=== PATIENT | female | born 1955 | race Caucasian/White ===

== ENCOUNTER 2021-09-16 10:00 | Inpatient (IN) | payer MEDICAID, OTHER ==
[~2021-09-16] VITALS: Ht 170.2 cm; Wt 73.6 kg
[2021-09-16] MEDS ORDERED: cefTRIAXone 1GM/50ML D5W 50 ML IV ONE (12:30)
[2021-09-16] MEDS ORDERED: CLINDAMYCIN 900MG IV 50 ML IV ONE (12:30)
[2021-09-16] MEDS ORDERED: ONDANSETRON ODT 4 MG TAB PO ONE (12:30)
[2021-09-16] MEDS ORDERED: HYDROcodone-ACET 5/325MG TAB PO ONE (12:30)
[2021-09-16 12:35] LABS: Basophils # (auto) 0 10 ^3/uL (0-0.2); Basophils % (auto) 0.5 % (0.0-2.0); Eosinophils # (auto) 0.1 10 ^3/uL (0-0.8); Eosinophils % (auto) 1.6 % (0.0-7.0); Hematocrit 41.4 % (36.0-46.0); Hemoglobin 14.3 g/dL (12.2-16.2); Lymphocytes % (auto) 15.4 % (10.0-50.0); Mean Corpuscular Hemoglobin 32.2 pg (28.0-32.0); Mean Corpuscular Hgb Conc. 34.5 g/dL (32.0-36.0); Mean Corpuscular Volume 93.4 fL (80.0-100.0); Monocytes # (auto) 0.6 10 ^3/uL (0-1.3); Monocytes % (auto) 10.1 % (0.0-12.0); Neutrophils # (auto) 4.7 10 ^3/uL (1.6-8.6); Neutrophils % (auto) 72.4 % (37.0-80.0); Nucleated Red Blood Cells % 0.1 %; Red Blood Cells 4.43 10^6/uL (4.0-5.20); White Blood Cell 6.4 10^3/uL (4.4-10.8)
[2021-09-16 12:49] LABS: Calcium 9.1 mg/dL (8.5-10.1); Potassium 4.7 mmol/L (3.5-5.1)
[2021-09-16 12:55] LABS: Albumin 3.9 g/dL (3.4-5.0); BUN/Creatinine Ratio 10.6; Bilirubin, Total 0.8 mg/dL (0.2-1.0)
[2021-09-16] MEDS ORDERED: IOHEXOL 300 MG/ML 100ML BOTTLE IJ ONE (12:59)
[2021-09-16] MEDS ORDERED: SODIUM CHLORIDE 0.9% 1,000 ML IV ONE (13:45)
[2021-09-16] MEDS ORDERED: NITROGLYCERIN 0.4 MG SL TAB SL PRN (14:15)
[2021-09-16] MEDS ORDERED: MORPHINE SULFATE INJ 2 MG/ml SYRG IV PRN (14:15)
[2021-09-16] MEDS ORDERED: diphenhdrAMINE HCL 50 MG/1 ML VL IV ONE (15:00)
[2021-09-16] MEDS ORDERED: methylPREDNISolone SOD SUCC 125 MG/2 ML VL IV ONE (15:00)
[2021-09-16 22:00] VITALS: BP 142/57
[2021-09-16 23:00] VITALS: BP 142/57
[2021-09-17] MEDS ORDERED: HYDROcodone-ACET 5/325MG TAB PO PRN (00:30)
[2021-09-17] MEDS: diphenhdrAMINE HCL 25 MG CAP PO PRN ×3 (01:35→15:45)
[2021-09-17] MEDS ORDERED: ONDANSETRON HCL 4 MG/2 ML VIAL IV PRN (04:00)
[2021-09-17] MEDS ORDERED: DOCUSATE SOD 100 MG CAP PO PRN (04:00)
[2021-09-17] MEDS ORDERED: FAMOTIDINE (10MG/ML) 2ML VL IV ONE (04:00)
[2021-09-17] MEDS ORDERED: hydrALAZINE HCL 20 MG/ML VL IV PRN (04:00)
[2021-09-17] MEDS ORDERED: ACETAMINOPHEN 325 MG TAB PO PRN (04:00)
[2021-09-17] MEDS ORDERED: MORPHINE SULFATE INJ 2 MG/ml SYRG IV PRN (04:00)
[2021-09-17] MEDS ORDERED: LORazepam 0.5 MG TAB PO PRN (04:00)
[2021-09-17 05:00] VITALS: BP 146/71
[2021-09-17 05:47] LABS: Basophils # (auto) 0 10 ^3/uL (0-0.2); Basophils % (auto) 0.4 % (0.0-2.0); Eosinophils # (auto) 0 10 ^3/uL (0-0.8); Eosinophils % (auto) 0.1 % (0.0-7.0); Hematocrit 37.9 % (36.0-46.0); Lymphocytes # (auto) 0.4 10 ^3/uL (0.4-5.4); Lymphocytes % (auto) 6.8 % (10.0-50.0); Mean Corpuscular Hemoglobin 31.9 pg (28.0-32.0); Mean Corpuscular Hgb Conc. 34.2 g/dL (32.0-36.0); Mean Corpuscular Volume 93.4 fL (80.0-100.0); Monocytes # (auto) 0.3 10 ^3/uL (0-1.3); Monocytes % (auto) 4.7 % (0.0-12.0); Neutrophils # (auto) 5.1 10 ^3/uL (1.6-8.6); Red Blood Cells 4.06 10^6/uL (4.0-5.20); White Blood Cell 5.8 10^3/uL (4.4-10.8)
[2021-09-17 05:59] LABS: INR 1.01 (0.9-1.15); Partial Thromboplastin Time 35.7 sec (23.6-33.0)
[2021-09-17 06:04] LABS: Potassium 4.3 mmol/L (3.5-5.1)
[2021-09-17 06:20] LABS: Albumin 3.2 g/dL (3.4-5.0); BUN/Creatinine Ratio 17.9; Bilirubin, Total 0.5 mg/dL (0.2-1.0); CRP High Sensitivity 1.53 mg/dL (< 0.3); Calcium 8.4 mg/dL (8.5-10.1); Magnesium 2.1 mg/dL (1.6-2.6); Phosphorus 2.9 mg/dL (2.5-4.90); Total Protein 6.7 g/dL (6.4-8.2); Uric Acid 3.6 mg/dL (2.6-6.0)
[2021-09-17] MEDS: AMPICILLIN & SULBACTAM SODIUM 3 GM in SODIUM CHL 0.9% 100 ML IV SCH ×3 (06:53→18:01)
[2021-09-17] MEDS ORDERED: LEVOTHYROXINE SODIUM 25 MCG TAB PO ONE (08:00)
[2021-09-17 08:54] VITALS: BP 146/71
[2021-09-17 09:00] VITALS: BP 138/58
[2021-09-17] MEDS: ENOXAPARIN SOD 40 MG/0.4 ML SYRINGE SC SCH (09:12)
[2021-09-17] MEDS: NIFEdipine ER 30 MG TAB PO SCH (09:14)
[2021-09-17] MEDS: ASPirin 81 mg TAB PO SCH (09:15)
[2021-09-17] MEDS: HYDROcodone-ACET 5/325MG TAB PO PRN ×2 (09:25→15:45)
[2021-09-17 13:00] VITALS: BP 143/69
[2021-09-17 15:48] LABS: Urine Bacteria NONE SEEN /hpf (None Seen); Urine Blood Negative /uL (Negative); Urine Specific Gravity 1.019 (1.001-1.035); Urine WBC 8 /hpf (0 - 5)
[2021-09-17 17:00] VITALS: BP 111/47
[2021-09-17] MEDS: NICOTINE 21MG/24 HR TOPICAL PATCH TD SCH (18:02)
[2021-09-17] MEDS: IPRATROPIUM BROM 0.5 MG/2.5ML INH SOL NEB SCH ×2 (19:03→22:00)
[2021-09-17] MEDS: BUDESONIDE (INHALATION) 0.5 MG/2 ML NEB NEB SCH ×2 (19:04→22:00)
[2021-09-17 21:52] LABS: Alcohol, Urine < 3.0 mg/dL (0-10); Amphetamine Screen, Urine NEGATIVE (NEGATIVE); Barbiturate Scree,Urine NEGATIVE (NEGATIVE); Benzodiazephine Screen, Urine NEGATIVE (NEGATIVE); Cannabinoid Screen, Urine NEGATIVE (NEGATIVE); Cocaine Screen, Urine NEGATIVE (NEGATIVE); Opiate Scree,Urine NEGATIVE (NEGATIVE); Phencyclidine Screen, Urine NEGATIVE (NEGATIVE)
[2021-09-17 22:00] VITALS: BP 123/70
[2021-09-18] MEDS: AMPICILLIN & SULBACTAM SODIUM 3 GM in SODIUM CHL 0.9% 100 ML IV SCH ×4 (00:33→17:39)
[2021-09-18] MEDS: HYDROcodone-ACET 5/325MG TAB PO PRN ×2 (00:58→21:32)
[2021-09-18] MEDS: IPRATROPIUM BROM 0.5 MG/2.5ML INH SOL NEB SCH ×6 (01:56→22:32)
[2021-09-18 05:00] VITALS: BP 144/80
[2021-09-18] MEDS: LEVOTHYROXINE SODIUM 25 MCG TAB PO SCH (06:15)
[2021-09-18 08:00] VITALS: BP 150/88
[2021-09-18 09:00] VITALS: BP 150/88
[2021-09-18] MEDS: FAMOTIDINE (10MG/ML) 2ML VL IV SCH (09:34)
[2021-09-18] MEDS: NIFEdipine ER 30 MG TAB PO SCH (09:35)
[2021-09-18] MEDS: ENOXAPARIN SOD 40 MG/0.4 ML SYRINGE SC SCH (09:37)
[2021-09-18] MEDS: ASPirin 81 mg TAB PO SCH (09:37)
[2021-09-18] MEDS: NICOTINE 21MG/24 HR TOPICAL PATCH TD SCH (09:38)
[2021-09-18] MEDS: BUDESONIDE (INHALATION) 0.5 MG/2 ML NEB NEB SCH ×2 (10:29→17:54)
[2021-09-18 14:00] VITALS: BP 143/75
[2021-09-18 17:00] VITALS: BP 155/78
[2021-09-18 23:55] VITALS: BP 131/66
[2021-09-19] MEDS: IPRATROPIUM BROM 0.5 MG/2.5ML INH SOL NEB SCH ×4 (02:00→14:12)
[2021-09-19 05:18] VITALS: BP 144/77
[2021-09-19] MEDS: AMPICILLIN & SULBACTAM SODIUM 3 GM in SODIUM CHL 0.9% 100 ML IV SCH ×4 (06:00→12:00)
[2021-09-19] MEDS: BUDESONIDE (INHALATION) 0.5 MG/2 ML NEB NEB SCH (06:02)
[2021-09-19] MEDS: LEVOTHYROXINE SODIUM 25 MCG TAB PO SCH (06:21)
[2021-09-19 06:54] LABS: BUN/Creatinine Ratio 10.9; Calcium 8.8 mg/dL (8.5-10.1); Potassium 3.4 mmol/L (3.5-5.1)
[2021-09-19] MEDS: HYDROcodone-ACET 5/325MG TAB PO PRN (07:18)
[2021-09-19] MEDS ORDERED: POTASSIUM CHL 20 Meq TABLET PO ONE (08:30)
[2021-09-19] MEDS: NICOTINE 21MG/24 HR TOPICAL PATCH TD SCH (08:45)
[2021-09-19] MEDS: ENOXAPARIN SOD 40 MG/0.4 ML SYRINGE SC SCH (08:45)
[2021-09-19] MEDS: ASPirin 81 mg TAB PO SCH (08:45)
[2021-09-19] MEDS: FAMOTIDINE (10MG/ML) 2ML VL IV SCH (08:45)
[2021-09-19] MEDS: diphenhdrAMINE HCL 25 MG CAP PO PRN (08:49)
[2021-09-19 09:00] VITALS: BP 144/74
[2021-09-19] MEDS ORDERED: LISINOPRIL 20 MG TAB PO SCH (10:00)
[2021-09-19 13:00] VITALS: BP 114/67
[2021-09-19] MEDS ORDERED: LISI20TA28 PO (13:26)
[2021-09-19] MEDS ORDERED: LEVO500T31 PO (13:26)
[2021-09-19] MEDS ORDERED: NIC21P TOP (13:26)
[2021-09-19 13:31] VITALS: BP 114/67
== END 2021-09-19 15:18 | disposition home or self-care (01) | DRG 383 ==
LOC: ER 10:00 → TELE 14:10 → TELE-EAST 20:52 → EAST 09-18 15:29
PROVIDERS: ADMIT Hospitalist; ATTEND Internal Medicine
DX: L03.211 Cellulitis of face (principal); E03.9 Hypothyroidism, unspecified; I10 Essential (primary) hypertension; J44.9 Chronic obstructive pulmonary disease, unspecified; F17.210 Nicotine dependence, cigarettes, uncomplicated; Z20.822 Contact with and (suspected) exposure to COVID-19; E87.6 Hypokalemia; Z88.8 Allergy status to other drugs, medicaments and biological substances; Z71.6 Tobacco abuse counseling; Z80.1 Family history of malignant neoplasm of trachea, bronchus and lung
CPT/HCPCS: 36415; 70487; 71046; 80048; 80053; 80061; 80307; 81001; 83036; 83735; 84100; 84156; 84443; 84484; 84550; 85025; 85610; 85652; 85730; 86141; 87040; 87086; 94640; 96361; 96365; 96368; 96375; G0378; J0696; J3490; Q0162

== ENCOUNTER 2021-09-26 11:10 | Emergency (ER) | payer MEDICAID ==
[~2021-09-26] VITALS: Ht 170.2 cm; Wt 72.1 kg
[~2021-09-26 11:10] MED LIST: LEVO500T31 PO; LISI20TA28 PO; NIC21P TOP
[2021-09-26 11:12] VITALS: BP 173/73
[2021-09-26] MEDS ORDERED: cefTRIAXone SOD 1,000 MG VL IM ONE (12:15)
[2021-09-26] MEDS ORDERED: CEPH-509 PO (12:36)
== END 2021-09-26 12:41 | disposition home or self-care (01) ==
LOC: ER 11:10
DX: L01.00 Impetigo, unspecified (principal); I10 Essential (primary) hypertension; J44.9 Chronic obstructive pulmonary disease, unspecified; F17.210 Nicotine dependence, cigarettes, uncomplicated; Z79.2 Long term (current) use of antibiotics; Z79.899 Other long term (current) drug therapy; Z88.1 Allergy status to other antibiotic agents
CPT/HCPCS: 96372; 99283; J0696

== ENCOUNTER 2021-09-28 10:11 | Emergency (ER) | payer MEDICAID ==
[~2021-09-28] VITALS: Ht 170.2 cm; Wt 72.1 kg
[~2021-09-28 10:11] MED LIST changes: +CEPH-509 PO
[2021-09-28 12:15] VITALS: BP 169/85
[2021-09-28] MEDS ORDERED: DICL500C76 PO (12:49)
[2021-09-28] MEDS ORDERED: ACE3T PO (12:49)
== END 2021-09-28 13:08 | disposition home or self-care (01) ==
LOC: ER 10:11
DX: L03.211 Cellulitis of face (principal); F17.210 Nicotine dependence, cigarettes, uncomplicated; J44.9 Chronic obstructive pulmonary disease, unspecified; I10 Essential (primary) hypertension; Z88.1 Allergy status to other antibiotic agents

== ENCOUNTER 2021-09-30 12:17 | Inpatient (IN) | payer MEDICAID ==
[~2021-09-30] VITALS: Ht 165.1 cm; Wt 77.6 kg
[~2021-09-30 12:17] MED LIST changes: +ACE3T PO; +DICL500C76 PO
[2021-09-30] MEDS ORDERED: PIPERACILLIN-TAZOB 3.375GM 100 ML IV ONE (13:15)
[2021-09-30 14:08] LABS: Urine Bacteria NONE SEEN /hpf (None Seen); Urine Blood Negative /uL (Negative); Urine Specific Gravity 1.004 (1.001-1.035); Urine WBC 6 /hpf (0 - 5)
[2021-09-30 14:11] LABS: Basophils # (auto) 0.1 10 ^3/uL (0-0.2); Basophils % (auto) 0.6 % (0.0-2.0); Eosinophils # (auto) 0.2 10 ^3/uL (0-0.8); Eosinophils % (auto) 1.8 % (0.0-7.0); Hematocrit 43.2 % (36.0-46.0); Hemoglobin 14.9 g/dL (12.2-16.2); Lymphocytes % (auto) 10.7 % (10.0-50.0); Mean Corpuscular Hemoglobin 31.8 pg (28.0-32.0); Mean Corpuscular Hgb Conc. 34.4 g/dL (32.0-36.0); Mean Corpuscular Volume 92.4 fL (80.0-100.0); Monocytes # (auto) 0.7 10 ^3/uL (0-1.3); Monocytes % (auto) 7.3 % (0.0-12.0); Neutrophils # (auto) 7.5 10 ^3/uL (1.6-8.6); Neutrophils % (auto) 79.6 % (37.0-80.0); Red Blood Cells 4.68 10^6/uL (4.0-5.20); Red Cell Distribution Width 13.5 % (11.8-14.3); White Blood Cell 9.4 10^3/uL (4.4-10.8)
[2021-09-30 14:27] LABS: Amphetamine Screen, Urine NEGATIVE (NEGATIVE); Barbiturate Scree,Urine NEGATIVE (NEGATIVE); Benzodiazephine Screen, Urine NEGATIVE (NEGATIVE); Cannabinoid Screen, Urine NEGATIVE (NEGATIVE); Cocaine Screen, Urine NEGATIVE (NEGATIVE); Opiate Scree,Urine NEGATIVE (NEGATIVE); Phencyclidine Screen, Urine NEGATIVE (NEGATIVE)
[2021-09-30 14:37] LABS: Albumin 4.2 g/dL (3.4-5.0); Calcium 8.9 mg/dL (8.5-10.1); Potassium 3.8 mmol/L (3.5-5.1)
[2021-09-30 14:42] LABS: BUN/Creatinine Ratio 7.9; Bilirubin, Total 0.8 mg/dL (0.2-1.0); Total Protein 8.3 g/dL (6.4-8.2)
[2021-09-30] MEDS ORDERED: MORPHINE SULFATE INJ 2 MG/ml SYRG IV PRN (16:00)
[2021-09-30] MEDS ORDERED: NITROGLYCERIN 0.4 MG SL TAB SL PRN (16:00)
[2021-09-30] MEDS ORDERED: VANCOMYCIN PER PHARMACY 0 MG IV SCH (16:45)
[2021-09-30] MEDS: SODIUM CHLORIDE 0.9% 1,000 ML IV SCH (16:58)
[2021-09-30] MEDS: VANCOMYCIN 1GM/250ML 250 ML IV SCH (18:31)
[2021-09-30] MEDS ORDERED: ONDANSETRON HCL 4 MG/2 ML VIAL IV PRN (20:45)
[2021-09-30] MEDS ORDERED: IPRATROPIUM BROM 0.5 MG/2.5ML INH SOL NEB PRN (20:45)
[2021-09-30] MEDS ORDERED: ACETAMINOPHEN 325 MG TAB PO PRN (20:45)
[2021-09-30] MEDS ORDERED: LORazepam 2MG/ML-1ML VIAL IV PRN (20:45)
[2021-09-30 21:02] LABS: Phosphorus 3.8 mg/dL (2.5-4.90)
[2021-09-30] MEDS: PIPERACILLIN-TAZO 4.5GM 100 ML IV SCH (22:29)
[2021-09-30] MEDS: ATORVASTATIN 20 MG TAB PO SCH (22:29)
[2021-09-30 22:30] VITALS: BP 149/80
[2021-09-30] MEDS: HYDROcodone-ACET 5/325MG TAB PO PRN (22:35)
[2021-09-30] MEDS: FLUTICASONE PROP NASAL SPR 0.05 % (50MCG) 16GM EACHNOSTRI SCH (22:41)
[2021-10-01] MEDS: MORPHINE SULFATE INJ 2 MG/ml SYRG IV PRN (00:24)
[2021-10-01] MEDS ORDERED: TEMAZEPAM 15 MG CAP PO ONE ×2 (00:45→22:45)
[2021-10-01 01:13] VITALS: BP 142/86
[2021-10-01 05:00] VITALS: BP_SYST 114; BP_SYST 156; BP_DIAS 73; BP_DIAS 79
[2021-10-01] MEDS: PIPERACILLIN-TAZO 4.5GM 100 ML IV SCH (05:40)
[2021-10-01] MEDS: VANCOMYCIN 1GM/250ML 250 ML IV SCH ×2 (05:44→17:33)
[2021-10-01 07:18] LABS: Basophils # (auto) 0.1 10 ^3/uL (0-0.2); Basophils % (auto) 1.1 % (0.0-2.0); Eosinophils # (auto) 0.3 10 ^3/uL (0-0.8); Eosinophils % (auto) 4.1 % (0.0-7.0); Hematocrit 38.8 % (36.0-46.0); Hemoglobin 13.5 g/dL (12.2-16.2); Lymphocytes # (auto) 1.2 10 ^3/uL (0.4-5.4); Lymphocytes % (auto) 20.6 % (10.0-50.0); Mean Corpuscular Hemoglobin 32.8 pg (28.0-32.0); Mean Corpuscular Hgb Conc. 34.9 g/dL (32.0-36.0); Monocytes # (auto) 0.5 10 ^3/uL (0-1.3); Monocytes % (auto) 8.4 % (0.0-12.0); Neutrophils % (auto) 65.8 % (37.0-80.0); Nucleated Red Blood Cells % 0.1 %; Red Blood Cells 4.13 10^6/uL (4.0-5.20); Red Cell Distribution Width 13.8 % (11.8-14.3); White Blood Cell 6.1 10^3/uL (4.4-10.8)
[2021-10-01 07:21] LABS: INR 1.1 (0.9-1.15); Partial Thromboplastin Time 34.9 sec (23.6-33.0)
[2021-10-01 07:32] LABS: Albumin 3.3 g/dL (3.4-5.0); BUN/Creatinine Ratio 8.2; Calcium 8.2 mg/dL (8.5-10.1); Magnesium 2.1 mg/dL (1.6-2.6); Potassium 3.6 mmol/L (3.5-5.1)
[2021-10-01 07:34] LABS: Bilirubin, Total 1.1 mg/dL (0.2-1.0); Phosphorus 2.8 mg/dL (2.5-4.90); Total Protein 6.4 g/dL (6.4-8.2)
[2021-10-01 09:00] VITALS: BP 137/67
[2021-10-01] MEDS: SODIUM CHLORIDE 0.9% 1,000 ML IV SCH (09:43)
[2021-10-01] MEDS: ENOXAPARIN SOD 40 MG/0.4 ML SYRINGE SC SCH (09:44)
[2021-10-01] MEDS: ASPirin 81 mg TAB PO SCH (09:44)
[2021-10-01] MEDS: FAMOTIDINE (10MG/ML) 2ML VL IV SCH (09:44)
[2021-10-01] MEDS: FLUTICASONE PROP NASAL SPR 0.05 % (50MCG) 16GM EACHNOSTRI SCH ×2 (09:44→21:43)
[2021-10-01] MEDS: NICOTINE 21MG/24 HR TOPICAL PATCH TD SCH (09:46)
[2021-10-01] MEDS: BENAZEPRIL HCL 10 MG TAB PO SCH (09:46)
[2021-10-01] MEDS ORDERED: DAPTOmycin 0 MG in SODIUM CHL 0.9% 50 ML IV SCH (10:00)
[2021-10-01] MEDS: diphenhdrAMINE HCL 25 MG CAP PO PRN (12:17)
[2021-10-01 13:00] VITALS: BP 144/66
[2021-10-01 17:00] VITALS: BP 121/68
[2021-10-01] MEDS ORDERED: diphenhdrAMINE HCL 50 MG/1 ML VL IV ONE (17:15)
[2021-10-01] MEDS: ATORVASTATIN 20 MG TAB PO SCH (21:43)
[2021-10-01 22:00] VITALS: BP 136/73
[2021-10-02] MEDS: SODIUM CHLORIDE 0.9% 1,000 ML IV SCH ×2 (04:16→08:49)
[2021-10-02 06:01] VITALS: BP 150/73
[2021-10-02] MEDS: VANCOMYCIN 1GM/250ML 250 ML IV SCH ×2 (06:35→17:17)
[2021-10-02] MEDS: FLUTICASONE PROP NASAL SPR 0.05 % (50MCG) 16GM EACHNOSTRI SCH ×2 (08:48→21:48)
[2021-10-02] MEDS: ASPirin 81 mg TAB PO SCH (08:48)
[2021-10-02] MEDS: FAMOTIDINE (10MG/ML) 2ML VL IV SCH (08:48)
[2021-10-02] MEDS: BENAZEPRIL HCL 10 MG TAB PO SCH (08:48)
[2021-10-02] MEDS: NICOTINE 21MG/24 HR TOPICAL PATCH TD SCH (08:49)
[2021-10-02] MEDS: ENOXAPARIN SOD 40 MG/0.4 ML SYRINGE SC SCH (08:49)
[2021-10-02] MEDS: HYDROcodone-ACET 5/325MG TAB PO PRN ×2 (08:50→16:39)
[2021-10-02 09:00] VITALS: BP 152/82
[2021-10-02] MEDS ORDERED: guaiFENesin-DM 100/10mg/5ml SYR PO PRN (11:15)
[2021-10-02 13:00] VITALS: BP 148/78
[2021-10-02] MEDS: guaiFENesin-DM 100/10mg/5ml SYR PO SCH ×2 (13:20→21:48)
[2021-10-02 17:00] VITALS: BP 155/77
[2021-10-02] MEDS: hydrALAZINE HCL 20 MG/ML VL IV PRN (20:54)
[2021-10-02] MEDS: ATORVASTATIN 20 MG TAB PO SCH (21:48)
[2021-10-02] MEDS: diphenhdrAMINE HCL 25 MG CAP PO PRN (21:49)
[2021-10-02 22:00] VITALS: BP 160/83
[2021-10-03] MEDS ORDERED: TEMAZEPAM 15 MG CAP PO ONE
[2021-10-03] MEDS: SODIUM CHLORIDE 0.9% 1,000 ML IV SCH ×2 (03:00→23:50)
[2021-10-03] MEDS: hydrALAZINE HCL 20 MG/ML VL IV PRN ×2 (04:56→21:34)
[2021-10-03 05:00] VITALS: BP 161/79
[2021-10-03] MEDS: guaiFENesin-DM 100/10mg/5ml SYR PO SCH ×3 (05:46→21:34)
[2021-10-03] MEDS: VANCOMYCIN 1GM/250ML 250 ML IV SCH ×2 (05:47→18:00)
[2021-10-03 09:00] VITALS: BP 138/78
[2021-10-03] MEDS: ASPirin 81 mg TAB PO SCH (09:37)
[2021-10-03] MEDS: FLUTICASONE PROP NASAL SPR 0.05 % (50MCG) 16GM EACHNOSTRI SCH ×2 (09:37→21:33)
[2021-10-03] MEDS: BENAZEPRIL HCL 10 MG TAB PO SCH (09:38)
[2021-10-03] MEDS: ENOXAPARIN SOD 40 MG/0.4 ML SYRINGE SC SCH (09:38)
[2021-10-03] MEDS: DOCUSATE SOD 100 MG CAP PO PRN (09:40)
[2021-10-03] MEDS: NICOTINE 21MG/24 HR TOPICAL PATCH TD SCH (09:40)
[2021-10-03] MEDS: HYDROcodone-ACET 5/325MG TAB PO PRN (09:41)
[2021-10-03 13:00] VITALS: BP 144/71
[2021-10-03 17:00] VITALS: BP 148/74
[2021-10-03 18:33] VITALS: BP 148/74
[2021-10-03] MEDS: ATORVASTATIN 20 MG TAB PO SCH (21:33)
[2021-10-03 22:00] VITALS: BP 158/80
[2021-10-03] MEDS: ZOLPIDEM TARTRATE 5 MG TAB PO PRN (22:13)
[2021-10-04 05:00] VITALS: BP 134/65
[2021-10-04] MEDS: guaiFENesin-DM 100/10mg/5ml SYR PO SCH ×3 (05:45→22:07)
[2021-10-04] MEDS: VANCOMYCIN 1GM/250ML 250 ML IV SCH ×2 (05:45→17:53)
[2021-10-04 08:00] VITALS: BP 142/64
[2021-10-04] MEDS: ENOXAPARIN SOD 40 MG/0.4 ML SYRINGE SC SCH (10:00)
[2021-10-04] MEDS: BENAZEPRIL HCL 10 MG TAB PO SCH (10:00)
[2021-10-04] MEDS: FLUTICASONE PROP NASAL SPR 0.05 % (50MCG) 16GM EACHNOSTRI SCH ×2 (10:00→22:07)
[2021-10-04] MEDS: ASPirin 81 mg TAB PO SCH (10:00)
[2021-10-04] MEDS: NICOTINE 21MG/24 HR TOPICAL PATCH TD SCH (10:00)
[2021-10-04] MEDS: DOCUSATE SOD 100 MG CAP PO PRN (10:07)
[2021-10-04] MEDS: diphenhdrAMINE HCL 25 MG CAP PO PRN (10:07)
[2021-10-04] MEDS: HYDROcodone-ACET 5/325MG TAB PO PRN ×2 (10:07→22:08)
[2021-10-04 12:00] VITALS: BP 126/67
[2021-10-04 16:00] VITALS: BP 127/67
[2021-10-04 20:00] VITALS: BP 152/72
[2021-10-04 22:00] VITALS: BP 153/72
[2021-10-04] MEDS: ZOLPIDEM TARTRATE 5 MG TAB PO PRN (22:06)
[2021-10-04] MEDS: ATORVASTATIN 20 MG TAB PO SCH (22:07)
[2021-10-05] MEDS: ALBUTEROL SULF 2.5 MG/0.5ML(0.5%) NEB SOLN NEB PRN ×2 (00:31→20:51)
[2021-10-05 05:00] VITALS: BP 148/68
[2021-10-05] MEDS: VANCOMYCIN 1GM/250ML 250 ML IV SCH (05:38)
[2021-10-05] MEDS: guaiFENesin-DM 100/10mg/5ml SYR PO SCH ×3 (05:38→21:45)
[2021-10-05 06:11] LABS: Basophils # (auto) 0 10 ^3/uL (0-0.2); Basophils % (auto) 0.7 % (0.0-2.0); Eosinophils # (auto) 0.1 10 ^3/uL (0-0.8); Eosinophils % (auto) 2.7 % (0.0-7.0); Hematocrit 34.3 % (36.0-46.0); Hemoglobin 11.9 g/dL (12.2-16.2); Lymphocytes % (auto) 18.9 % (10.0-50.0); Mean Corpuscular Hemoglobin 32.7 pg (28.0-32.0); Mean Corpuscular Hgb Conc. 34.7 g/dL (32.0-36.0); Mean Corpuscular Volume 94.3 fL (80.0-100.0); Monocytes # (auto) 0.5 10 ^3/uL (0-1.3); Monocytes % (auto) 9.8 % (0.0-12.0); Neutrophils # (auto) 3.6 10 ^3/uL (1.6-8.6); Neutrophils % (auto) 67.9 % (37.0-80.0); Red Blood Cells 3.63 10^6/uL (4.0-5.20); White Blood Cell 5.3 10^3/uL (4.4-10.8)
[2021-10-05 06:15] LABS: Potassium 3.5 mmol/L (3.5-5.1)
[2021-10-05 06:21] LABS: Albumin 3.2 g/dL (3.4-5.0); BUN/Creatinine Ratio 10.4; Calcium 8.1 mg/dL (8.5-10.1); Phosphorus 3.7 mg/dL (2.5-4.90)
[2021-10-05 09:00] VITALS: BP 155/66
[2021-10-05] MEDS: hydrALAZINE HCL 20 MG/ML VL IV PRN (09:10)
[2021-10-05] MEDS: FLUTICASONE PROP NASAL SPR 0.05 % (50MCG) 16GM EACHNOSTRI SCH ×2 (09:32→21:55)
[2021-10-05] MEDS: ENOXAPARIN SOD 40 MG/0.4 ML SYRINGE SC SCH (09:32)
[2021-10-05] MEDS: BENAZEPRIL HCL 10 MG TAB PO SCH (09:32)
[2021-10-05] MEDS: ASPirin 81 mg TAB PO SCH (09:32)
[2021-10-05] MEDS: NICOTINE 21MG/24 HR TOPICAL PATCH TD SCH (09:32)
[2021-10-05] MEDS: diphenhdrAMINE HCL 25 MG CAP PO PRN ×2 (09:34→16:39)
[2021-10-05] MEDS: SODIUM CHLORIDE 0.9% 1,000 ML IV SCH ×2 (12:55→13:55)
[2021-10-05 13:00] VITALS: BP 118/60
[2021-10-05 17:00] VITALS: BP 140/63
[2021-10-05] MEDS: ATORVASTATIN 20 MG TAB PO SCH (21:45)
[2021-10-05] MEDS: ZOLPIDEM TARTRATE 5 MG TAB PO PRN (21:46)
[2021-10-05] MEDS: MORPHINE SULFATE INJ 2 MG/ml SYRG IV PRN (21:46)
[2021-10-05 22:00] VITALS: BP 129/60
[2021-10-05 23:22] VITALS: BP 129/60
[2021-10-06 05:00] VITALS: BP 138/63
[2021-10-06] MEDS ORDERED: VANCOMYCIN 1GM/250ML 250 ML IV SCH (06:00)
[2021-10-06] MEDS: guaiFENesin-DM 100/10mg/5ml SYR PO SCH (06:05)
[2021-10-06] MEDS ORDERED: DOXY-286 PO (08:38)
[2021-10-06] MEDS ORDERED: DIPH25CA66 PO (08:38)
[2021-10-06] MEDS: diphenhdrAMINE HCL 25 MG CAP PO PRN (08:55)
[2021-10-06 09:00] VITALS: BP 126/58
[2021-10-06] MEDS: FLUTICASONE PROP NASAL SPR 0.05 % (50MCG) 16GM EACHNOSTRI SCH (09:06)
[2021-10-06] MEDS: BENAZEPRIL HCL 10 MG TAB PO SCH (09:07)
[2021-10-06] MEDS: ENOXAPARIN SOD 40 MG/0.4 ML SYRINGE SC SCH (09:07)
[2021-10-06] MEDS: ASPirin 81 mg TAB PO SCH (09:07)
[2021-10-06] MEDS: NICOTINE 21MG/24 HR TOPICAL PATCH TD SCH (09:08)
[2021-10-06 09:59] VITALS: BP 126/58
== END 2021-10-06 10:30 | disposition home or self-care (01) | DRG 383 ==
LOC: ER 12:17 → OVERFLOW 15:59 → EAST 21:26
PROVIDERS: ADMIT Hospitalist; ATTEND Family Medicine
DX: L03.211 Cellulitis of face (principal); J44.1 Chronic obstructive pulmonary disease with (acute) exacerbation; L01.00 Impetigo, unspecified; A46 Erysipelas; F10.10 Alcohol abuse, uncomplicated; F17.210 Nicotine dependence, cigarettes, uncomplicated; I10 Essential (primary) hypertension; J32.9 Chronic sinusitis, unspecified; L71.9 Rosacea, unspecified; M19.90 Unspecified osteoarthritis, unspecified site; N39.0 Urinary tract infection, site not specified; Z20.822 Contact with and (suspected) exposure to COVID-19; E03.9 Hypothyroidism, unspecified; E78.00 Pure hypercholesterolemia, unspecified; E78.5 Hyperlipidemia, unspecified; Z80.1 Family history of malignant neoplasm of trachea, bronchus and lung; Z82.0 Family history of epilepsy and other diseases of the nervous system; Z88.8 Allergy status to other drugs, medicaments and biological substances; Z71.6 Tobacco abuse counseling; Z71.41 Alcohol abuse counseling and surveillance of alcoholic
CPT/HCPCS: 36415; 70450; 80053; 80069; 80202; 80307; 81001; 82565; 83036; 83605; 83735; 83880; 84100; 84439; 84443; 84484; 85025; 85379; 85610; 85730; 87040; 87081; 87086; 87205; 94640; 96361; 96365; 96366; 96367; G0378; J2405; J2543; J3490

== ENCOUNTER 2021-10-09 10:31 | Inpatient (IN) | payer MEDICAID ==
[~2021-10-09] VITALS: Ht 170.2 cm; Wt 75.1 kg
[~2021-10-09 10:31] MED LIST changes: +DIPH25CA66 PO; +DOXY-286 PO
[2021-10-09 11:23] LABS: Eosinophils # (auto) 0.2 10 ^3/uL (0-0.8)
[2021-10-09 11:25] LABS: Basophils # (auto) 0.2 10 ^3/uL (0-0.2); Basophils % (auto) 3.5 % (0.0-2.0); Eosinophils % (auto) 2.7 % (0.0-7.0); Hematocrit 41.7 % (36.0-46.0); Lymphocytes # (auto) 0.8 10 ^3/uL (0.4-5.4); Lymphocytes % (auto) 12.5 % (10.0-50.0); Mean Corpuscular Hemoglobin 31.5 pg (28.0-32.0); Mean Corpuscular Hgb Conc. 33.7 g/dL (32.0-36.0); Mean Corpuscular Volume 93.7 fL (80.0-100.0); Monocytes # (auto) 0.5 10 ^3/uL (0-1.3); Monocytes % (auto) 8.7 % (0.0-12.0); Neutrophils # (auto) 4.5 10 ^3/uL (1.6-8.6); Neutrophils % (auto) 72.6 % (37.0-80.0); Nucleated Red Blood Cells % 0.1 %; Red Blood Cells 4.45 10^6/uL (4.0-5.20); White Blood Cell 6.2 10^3/uL (4.4-10.8)
[2021-10-09 11:38] LABS: INR 1.04 (0.9-1.15); Partial Thromboplastin Time 36.2 sec (23.6-33.0)
[2021-10-09 11:41] LABS: Calcium 9.1 mg/dL (8.5-10.1); Potassium 3.6 mmol/L (3.5-5.1)
[2021-10-09 11:45] LABS: BUN/Creatinine Ratio 12.5; Bilirubin, Total 0.8 mg/dL (0.2-1.0); Total Protein 8.1 g/dL (6.4-8.2)
[2021-10-09] MEDS ORDERED: cefTRIAXone 1GM/50ML D5W 50 ML IV ONE (12:45)
[2021-10-09] MEDS ORDERED: SODIUM CHLORIDE 0.9% 1,000 ML IV ONE (12:45)
[2021-10-09] MEDS ORDERED: hydrALAZINE HCL 20 MG/ML VL IV ONE (16:30)
[2021-10-09] MEDS ORDERED: MORPHINE SULFATE INJ 2 MG/ml SYRG IV ONE (16:45)
[2021-10-09] MEDS ORDERED: hydrALAZINE HCL 20 MG/ML VL IV PRN (17:15)
[2021-10-09] MEDS ORDERED: cloNIDine HCL 0.1 MG TAB PO ONE (17:15)
[2021-10-09] MEDS ORDERED: diphenhdrAMINE HCL 50 MG/1 ML VL IV ONE (17:15)
[2021-10-09] MEDS ORDERED: FAMOTIDINE (10MG/ML) 2ML VL IV ONE (17:15)
[2021-10-09] MEDS: SOD CHL 0.45% 1,000 ML IV SCH (18:03)
[2021-10-09] MEDS ORDERED: KETOROLAC TROMETH 30 MG/ML 1ML VIAL IV PRN (19:45)
[2021-10-09 22:00] VITALS: BP 141/72
[2021-10-09] MEDS: diphenhdrAMINE HCL 50 MG/1 ML VL IV PRN (22:02)
[2021-10-10 05:00] VITALS: BP 142/70
[2021-10-10] MEDS: SOD CHL 0.45% 1,000 ML IV SCH ×2 (06:55→08:55)
[2021-10-10 09:00] VITALS: BP 153/83
[2021-10-10] MEDS: NICOTINE 7MG/24HR TOPICAL PATCH TD SCH (09:48)
[2021-10-10] MEDS: diphenhdrAMINE HCL 50 MG/1 ML VL IV PRN (09:49)
[2021-10-10] MEDS ORDERED: VANCOMYCIN PER PHARMACY 0 MG IV SCH (12:00)
[2021-10-10] MEDS ORDERED: VANCOMYCIN 1GM/250ML 250 ML IV ONE (12:15)
[2021-10-10 13:00] VITALS: BP 145/73
[2021-10-10] MEDS: ALPRAZolam 0.5 MG TAB PO SCH ×2 (13:54→22:33)
[2021-10-10] MEDS: diphenhdrAMINE HCL 25 MG CAP PO PRN (15:59)
[2021-10-10 17:00] VITALS: BP 120/79
[2021-10-10 22:00] VITALS: BP 141/72
[2021-10-11] MEDS: VANCOMYCIN 1GM/250ML 250 ML IV SCH ×2 (02:09→15:17)
[2021-10-11 05:00] VITALS: BP 144/85
[2021-10-11] MEDS: ALPRAZolam 0.5 MG TAB PO SCH ×3 (05:57→21:38)
[2021-10-11 08:57] LABS: Urine Bacteria FEW /hpf (None Seen); Urine Blood Negative /uL (Negative); Urine Specific Gravity 1.004 (1.001-1.035); Urine WBC 6 /hpf (0 - 5)
[2021-10-11 09:00] VITALS: BP 121/66
[2021-10-11] MEDS: NICOTINE 7MG/24HR TOPICAL PATCH TD SCH (10:00)
[2021-10-11 13:00] VITALS: BP 142/74
[2021-10-11 16:49] VITALS: BP 147/79
[2021-10-11] MEDS: diphenhdrAMINE HCL 25 MG CAP PO PRN (20:15)
[2021-10-11 22:00] VITALS: BP 128/83
[2021-10-12 05:00] VITALS: BP_SYST 130; BP_SYST 149; BP_DIAS 74; BP_DIAS 79
[2021-10-12] MEDS: ALPRAZolam 0.5 MG TAB PO SCH ×3 (05:37→21:26)
[2021-10-12] MEDS: VANCOMYCIN 1GM/250ML 250 ML IV SCH ×2 (06:00→12:29)
[2021-10-12] MEDS: diphenhdrAMINE HCL 25 MG CAP PO PRN ×2 (08:13→16:53)
[2021-10-12 09:00] VITALS: BP 136/75
[2021-10-12] MEDS: NICOTINE 7MG/24HR TOPICAL PATCH TD SCH (09:58)
[2021-10-12 13:00] VITALS: BP 144/84
[2021-10-12 17:00] VITALS: BP 138/73
[2021-10-12 22:00] VITALS: BP 155/79
[2021-10-13 05:00] VITALS: BP 137/73
[2021-10-13] MEDS: ALPRAZolam 0.5 MG TAB PO SCH ×3 (05:35→20:59)
[2021-10-13] MEDS: VANCOMYCIN 1GM/250ML 250 ML IV SCH (05:35)
[2021-10-13 08:00] VITALS: BP 119/81
[2021-10-13] MEDS: NICOTINE 7MG/24HR TOPICAL PATCH TD SCH (10:00)
[2021-10-13] MEDS: diphenhdrAMINE HCL 25 MG CAP PO PRN ×2 (10:29→20:06)
[2021-10-13 11:59] LABS: Basophils # (auto) 0.1 10 ^3/uL (0-0.2); Eosinophils # (auto) 0.3 10 ^3/uL (0-0.8); Eosinophils % (auto) 3.6 % (0.0-7.0); Hematocrit 40.7 % (36.0-46.0); Hemoglobin 13.3 g/dL (12.2-16.2); Mean Corpuscular Hemoglobin 30.6 pg (28.0-32.0); Mean Corpuscular Hgb Conc. 32.8 g/dL (32.0-36.0); Mean Corpuscular Volume 93.3 fL (80.0-100.0); Monocytes # (auto) 0.7 10 ^3/uL (0-1.3); Neutrophils % (auto) 71.4 % (37.0-80.0); Nucleated Red Blood Cells % 0.1 %; Red Blood Cells 4.36 10^6/uL (4.0-5.20); Red Cell Distribution Width 13.7 % (11.8-14.3); White Blood Cell 7.1 10^3/uL (4.4-10.8)
[2021-10-13 12:00] VITALS: BP 147/74
[2021-10-13 16:00] VITALS: BP 138/78
[2021-10-13 22:00] VITALS: BP 149/90
[2021-10-14] MEDS: VANCOMYCIN 1GM/250ML 250 ML IV SCH (00:16)
[2021-10-14 05:00] VITALS: BP 162/80
[2021-10-14] MEDS: ALPRAZolam 0.5 MG TAB PO SCH (05:37)
[2021-10-14 06:25] VITALS: BP 142/78
[2021-10-14] MEDS: NICOTINE 7MG/24HR TOPICAL PATCH TD SCH (09:46)
[2021-10-14] MEDS: diphenhdrAMINE HCL 25 MG CAP PO PRN (09:48)
[2021-10-14] MEDS ORDERED: DOXY-286 PO (09:49)
[2021-10-14] MEDS ORDERED: DIPH25CA66 PO (09:58)
== END 2021-10-14 14:22 | disposition home or self-care (01) | DRG 383 ==
LOC: ER 10:31 → OVERFLOW 17:04 → EAST 19:50
PROVIDERS: ADMIT Registered Nurse; ATTEND Family Medicine
DX: L03.211 Cellulitis of face (principal); F02.80 Dementia in other diseases classified elsewhere, unspecified severity, without behavioral disturbance, psychotic disturbance, mood disturbance, and anxiety; E03.9 Hypothyroidism, unspecified; L01.00 Impetigo, unspecified; N18.2 Chronic kidney disease, stage 2 (mild); J44.9 Chronic obstructive pulmonary disease, unspecified; F10.20 Alcohol dependence, uncomplicated; Z20.822 Contact with and (suspected) exposure to COVID-19; I12.9 Hypertensive chronic kidney disease with stage 1 through stage 4 chronic kidney disease, or unspecified chronic kidney disease; F41.9 Anxiety disorder, unspecified; Z79.899 Other long term (current) drug therapy; Z88.8 Allergy status to other drugs, medicaments and biological substances; Z80.1 Family history of malignant neoplasm of trachea, bronchus and lung; Z82.0 Family history of epilepsy and other diseases of the nervous system; Z82.49 Family history of ischemic heart disease and other diseases of the circulatory system; Z72.0 Tobacco use; Z71.6 Tobacco abuse counseling
CPT/HCPCS: 36415; 70486; 71045; 80053; 80202; 81001; 82565; 83605; 84484; 85025; 85610; 85730; 87040; 96365; 96375; 99291; G0378; J0696; J3490